=== PATIENT | female | born 1990 | race African-American/Black ===

== ENCOUNTER 2017-08-25 09:10 | Emergency (ER) | payer OTHER ==
[~2017-08-25] VITALS: Ht 162.6 cm; Wt 69.0 kg
[~2017-08-25 09:10] MED LIST: AZITHROMYCIN 2250 MG PO; BIRTH CONTROL PILL; FLAGYL500 MG PO; MINASTRIN 24 F1 EACH PO; NORCO 5-325 TA1 EACH PO; TESSALON PERLE100 MG PO; ZANTAC 150MG T150 MG PO
[2017-08-25 09:58] LABS: ABSOLUTE NEUTROPHILS 4.3 thou/uL (1.4-8.2); BASOPHILS 0.4 % (0.0-2.0); EOSINOPHILS 0.2 % (0.0-3.0); HEMATOCRIT 39.1 % (37.0-47.0); LYMPHOCYTES 19.2 % (24.0-44.0); MCH 28.9 pg (26.0-34.0); MCHC 33.2 g/dL (28.0-37.0); MONOCYTES 9.1 % (1.0-8.0); PLATELET COUNT 145 thou/uL (150-400); POLYS 71.1 % (36.0-66.0); RBC 4.49 mil/uL (4.20-5.00); RDW 15.6 % (10.5-14.5)
[2017-08-25 10:15] LABS: CREATININE 0.8 mg/dL (0.6-1.0)
[2017-08-25 10:19] LABS: ALBUMIN 3.6 g/dL (3.4-5.0); DIRECT BILIRUBIN 0.1 mg/dL (<0.1-0.3); TOTAL BILIRUBIN 0.4 mg/dL (<0.1-1.0); TOTAL PROTEIN 7.5 g/dL (6.4-8.2)
[2017-08-25] MEDS ORDERED: IBUPROFEN 800800 M1 PO (12:01)
[2017-08-25] MEDS ORDERED: ACETAMINOPHEN-1 EAC1 PO (12:01)
[2017-08-25] MEDS ORDERED: ZOFRAN ODT4 MG PO (12:01)
== END 2017-08-25 12:15 | disposition home or self-care (01) ==
LOC: ER 09:10
PROVIDERS: Emergency Medicine
DX: B34.9 Viral infection, unspecified (principal); F17.210 Nicotine dependence, cigarettes, uncomplicated

== ENCOUNTER 2017-12-01 09:01 | Emergency (ER) | payer OTHER ==
[~2017-12-01] VITALS: Ht 167.6 cm; Wt 65.8 kg
[~2017-12-01 09:01] MED LIST changes: +ACETAMINOPHEN-1 EAC1 PO; +IBUPROFEN 800800 M1 PO; +ZOFRAN ODT4 MG PO
[2017-12-01 09:42] LABS: ABSOLUTE NEUTROPHILS 1.3 thou/uL (1.4-8.2); BASOPHILS 1.2 % (0.0-2.0); EOSINOPHILS 0.4 % (0.0-3.0); HEMATOCRIT 41.3 % (37.0-47.0); LYMPHOCYTES 56.7 % (24.0-44.0); MCH 29.5 pg (26.0-34.0); MCHC 33.8 g/dL (28.0-37.0); MCV 87.4 fL (80.0-100.0); MONOCYTES 10.1 % (1.0-8.0); PLATELET COUNT 146 thou/uL (150-400); POLYS 31.6 % (36.0-66.0); RBC 4.73 mil/uL (4.20-5.00); WBC 4.1 thou/uL (4.0-11.0)
[2017-12-01 09:46] LABS: CALCIUM 9.7 mg/dL (8.5-10.1); CREATININE 0.9 mg/dL (0.6-1.0); POTASSIUM 3.6 mmol/L (3.5-5.1); URINE BILIRUBIN NEGATIVE (Negative); URINE BLOOD 1+ (Negative); URINE CLARITY CLEAR; URINE COLOR YELLOW; URINE GLUCOSE-RANDOM* NEGATIVE (Negative); URINE KETONES NEGATIVE (Negative); URINE LEUKOCYTES NEGATIVE (Negative); URINE NITRITE NEGATIVE (Negative); URINE PROTEIN (DIPSTICK) NEGATIVE (Negative); URINE SPECIFIC GRAVITY 1.015 (1.005-1.035); URINE UROBILINOGEN 0.2 E.U./dl (0.2-1.0)
[2017-12-01 09:52] LABS: ALBUMIN 4.1 g/dL (3.4-5.0); DIRECT BILIRUBIN 0.2 mg/dL (<0.1-0.3); SSA (PROTEIN CONFIRMATORY) NEGATIVE (Negative); TOTAL BILIRUBIN 0.6 mg/dL (<0.1-1.0); TOTAL PROTEIN 8.4 g/dL (6.4-8.2)
[2017-12-01 09:55] LABS: SQUAMOUS >10 Many /LPF (0-3)
[2017-12-01 09:57] LABS: CASTS None Seen /LPF (None Seen); CRYSTALS None Seen /LPF (None Seen); URINE RBC 3-10 Few /HPF (0-2); URINE WBC 0-5 Rare /HPF (0-5)
[2017-12-01] MEDS ORDERED: ZOFRAN ODT4 MG PO (10:20)
[2017-12-01 10:32] VITALS: BP 133/86
== END 2017-12-01 10:35 | disposition home or self-care (01) ==
LOC: ER 09:01
PROVIDERS: Emergency Medicine
DX: R11.2 Nausea with vomiting, unspecified (principal); R51 Headache; F17.210 Nicotine dependence, cigarettes, uncomplicated

== ENCOUNTER 2018-02-05 11:33 | Emergency (ER) | payer OTHER ==
[~2018-02-05] VITALS: Ht 165.1 cm; Wt 68.0 kg
[2018-02-05 11:52] VITALS: BP 113/83
[2018-02-05 12:14] LABS: URINE BILIRUBIN NEGATIVE (Negative); URINE BLOOD NEGATIVE (Negative); URINE CLARITY CLEAR; URINE COLOR YELLOW; URINE GLUCOSE-RANDOM* NEGATIVE (Negative); URINE KETONES NEGATIVE (Negative); URINE LEUKOCYTES-REFLEX NEGATIVE (Negative); URINE NITRITE-REFLEX NEGATIVE (Negative); URINE PROTEIN (DIPSTICK) NEGATIVE (Negative); URINE SPECIFIC GRAVITY 1.025 (1.005-1.035); URINE UROBILINOGEN 0.2 E.U./dl (0.2-1.0)
[2018-02-05 12:38] LABS: ABSOLUTE NEUTROPHILS 1.3 thou/uL (1.4-8.2); BASOPHILS 1.3 % (0.0-2.0); EOSINOPHILS 0.4 % (0.0-3.0); HEMATOCRIT 38.3 % (37.0-47.0); LYMPHOCYTES 53.9 % (24.0-44.0); MCH 29.3 pg (26.0-34.0); MCHC 34.1 g/dL (28.0-37.0); MCV 85.9 fL (80.0-100.0); MONOCYTES 9.1 % (1.0-8.0); PLATELET COUNT 133 thou/uL (150-400); POLYS 35.3 % (36.0-66.0); RBC 4.45 mil/uL (4.20-5.00); RDW 14.8 % (10.5-14.5); WBC 3.8 thou/uL (4.0-11.0)
[2018-02-05 12:43] LABS: CALCIUM 9.4 mg/dL (8.5-10.1); CREATININE 0.7 mg/dL (0.6-1.0)
[2018-02-05 12:57] LABS: ALBUMIN 3.9 g/dL (3.4-5.0); TOTAL BILIRUBIN 0.4 mg/dL (<0.1-1.0)
[2018-02-05] MEDS ORDERED: PEPCID20 MG PO (13:31)
[2018-02-05] MEDS ORDERED: ANUSOL-HC25 MG RECTAL (13:31)
== END 2018-02-05 17:05 | disposition home or self-care (01) ==
LOC: ER 11:33
PROVIDERS: Physician Assistant
DX: K62.89 Other specified diseases of anus and rectum (principal); R10.13 Epigastric pain; F17.210 Nicotine dependence, cigarettes, uncomplicated

== ENCOUNTER 2018-08-12 17:51 | Emergency (ER) | payer OTHER ==
[~2018-08-12] VITALS: Ht 162.6 cm; Wt 69.4 kg
[~2018-08-12 17:51] MED LIST changes: +ANUSOL-HC25 MG RECTAL; +PEPCID20 MG PO
[2018-08-12] MEDS ORDERED: PREDNISONE 20 M20 MG PO (18:29)
[2018-08-12] MEDS ORDERED: FLONASE 0.05%50 MCG NASAL (18:29)
[2018-08-12 18:55] VITALS: BP 128/65
== END 2018-08-12 18:55 | disposition home or self-care (01) ==
LOC: ER 17:51
DX: H69.92 Unspecified Eustachian tube disorder, left ear (principal); F17.210 Nicotine dependence, cigarettes, uncomplicated

== ENCOUNTER 2019-05-13 15:52 | Emergency (ER) | payer OTHER ==
[~2019-05-13] VITALS: Ht 162.6 cm; Wt 57.1 kg
[~2019-05-13 15:52] MED LIST changes: +FLONASE 0.05%50 MCG NASAL; +PREDNISONE 20 M20 MG PO
[2019-05-13] MEDS ORDERED: MOBIC15 MG PO (16:46)
[2019-05-13 17:51] VITALS: BP 116/52
== END 2019-05-13 17:51 | disposition home or self-care (01) ==
LOC: ER 15:52
DX: M79.675 Pain in left toe(s) (principal); F17.210 Nicotine dependence, cigarettes, uncomplicated

== ENCOUNTER 2020-06-07 14:53 | Emergency (ER) | payer OTHER ==
[~2020-06-07] VITALS: Ht 162.6 cm; Wt 78.9 kg
[~2020-06-07 14:53] MED LIST changes: +MOBIC15 MG PO
[2020-06-07 15:03] VITALS: BP 139/89
[2020-06-07] MEDS ORDERED: MOBIC7.5 MG PO (15:24)
== END 2020-06-07 16:09 | disposition home or self-care (01) ==
LOC: ER 14:53
DX: S90.122A Contusion of left lesser toe(s) without damage to nail, initial encounter (principal); F17.210 Nicotine dependence, cigarettes, uncomplicated; Z79.899 Other long term (current) drug therapy; W22.8XXA Striking against or struck by other objects, initial encounter; Y93.89 Activity, other specified; Y92.89 Other specified places as the place of occurrence of the external cause; Y99.8 Other external cause status

== ENCOUNTER 2020-11-13 14:22 | Emergency (ER) | payer OTHER ==
[~2020-11-13] VITALS: Ht 162.6 cm; Wt 84.8 kg
[~2020-11-13 14:22] MED LIST changes: +MOBIC7.5 MG PO
[2020-11-13] MEDS ORDERED: AMITRIPTYLINE H50 M2 PO (15:32)
[2020-11-13] MEDS ORDERED: TAPAZOLE5 MG PO (15:32)
[2020-11-13] MEDS ORDERED: DULOXETINE HCL60 MG PO (15:32)
[2020-11-13] MEDS ORDERED: TIZANIDINE HCL 22 M1 PO (15:33)
[2020-11-13] MEDS ORDERED: D3-501250 MCG PO (15:33)
[2020-11-13] MEDS ORDERED: HYDROXYZINE HCL25 M2 PO (15:33)
[2020-11-13] MEDS ORDERED: BLISOVI 24 FE1 EACH PO (15:33)
[2020-11-13 16:27] VITALS: BP 120/82
== END 2020-11-13 16:27 | disposition home or self-care (01) ==
LOC: ER 14:22
DX: G43.909 Migraine, unspecified, not intractable, without status migrainosus (principal); F17.210 Nicotine dependence, cigarettes, uncomplicated; Z79.899 Other long term (current) drug therapy

== ENCOUNTER 2021-05-04 09:41 | Emergency (ER) | payer OTHER ==
[~2021-05-04] VITALS: Ht 162.6 cm; Wt 85.7 kg
[~2021-05-04 09:41] MED LIST changes: +AMITRIPTYLINE H50 M2 PO; +BLISOVI 24 FE1 EACH PO; +D3-501250 MCG PO; +DULOXETINE HCL60 MG PO; +HYDROXYZINE HCL25 M2 PO; +TAPAZOLE5 MG PO; +TIZANIDINE HCL 22 M1 PO
[2021-05-04 10:13] LABS: URINE BILIRUBIN NEGATIVE (Negative); URINE BLOOD NEGATIVE (Negative); URINE CLARITY CLEAR; URINE COLOR YELLOW; URINE GLUCOSE-RANDOM* NEGATIVE (Negative); URINE KETONES NEGATIVE (Negative); URINE LEUKOCYTES-REFLEX NEGATIVE (Negative); URINE NITRITE-REFLEX NEGATIVE (Negative); URINE PROTEIN (DIPSTICK) NEGATIVE (Negative); URINE UROBILINOGEN 0.2 E.U./dl (0.2-1.0)
[2021-05-04] MEDS ORDERED: NYSTATIN15 G3 TOP (11:47)
== END 2021-05-04 11:48 | disposition home or self-care (01) ==
LOC: ER 09:41
PROVIDERS: Student in an Organized Health Care Education/Training Program
DX: B37.9 Candidiasis, unspecified (principal); F17.210 Nicotine dependence, cigarettes, uncomplicated; Z79.899 Other long term (current) drug therapy